=== PATIENT | male | born 1985 | race Caucasian/White ===

== ENCOUNTER 2019-07-13 13:16 | Emergency (ER) | payer BC ==
[~2019-07-13] VITALS: Ht 188 cm; Wt 116.0 kg
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
[2019-07-13] MEDS ORDERED: HYDROcodone/APAP 7.5/325MG 1 TAB TABLET PO ONE (14:30)
[2019-07-13] MEDS ORDERED: HYDR-3165 PO (14:35)
[2019-07-13 14:50] VITALS: BP 167/103
== END 2019-07-13 15:05 | disposition home or self-care (01) ==
LOC: ER 13:16
DX: S82.831A Other fracture of upper and lower end of right fibula, initial encounter for closed fracture (principal); S83.91XA Sprain of unspecified site of right knee, initial encounter; S05.12XA Contusion of eyeball and orbital tissues, left eye, initial encounter; V29.9XXA Motorcycle rider (driver) (passenger) injured in unspecified traffic accident, initial encounter; Y93.I9 Activity, other involving external motion; Y92.828 Other wilderness area as the place of occurrence of the external cause; Y99.8 Other external cause status; Z88.0 Allergy status to penicillin
CPT/HCPCS: 29515; 73562; 73610; 99284-25

== ENCOUNTER → 2019-07-27 | Outpatient (CLI) | payer BC ==
[2019-07-13 14:50] VITALS: BP 167/103
[~2019-07-27] MED LIST: HYDR-3165 PO
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
== END | disposition home or self-care (01) ==
LOC: DXRAD 09:41
PROVIDERS: ATTEND Family Medicine
DX: S82.831A Other fracture of upper and lower end of right fibula, initial encounter for closed fracture (principal); M25.774 Osteophyte, right foot; X58.XXXA Exposure to other specified factors, initial encounter; Y93.89 Activity, other specified; Y92.89 Other specified places as the place of occurrence of the external cause; Y99.8 Other external cause status
CPT/HCPCS: 73600

== ENCOUNTER → 2019-08-24 | Outpatient (CLI) | payer BC ==
--- NOTE | 2019-08-24 15:09 | RAD ---
Right ankle 3 views. HISTORY: Right ankle pain, follow-up fracture 3 views were taken of the right ankle. There is a fracture of the lateral malleolus without change in the alignment or position. There is early callus formation. There is spurring at the tip of the medial malleolus. IMPRESSION: 1. Healing fracture of the lateral malleolus with early callus formation. Electronically signed by: Karl Del Angel MD (08/24/2019 3:06 PM) [facility]
== END ==
LOC: DXRAD 13:45
PROVIDERS: ATTEND Physician Assistant
DX: S82.61XD Displaced fracture of lateral malleolus of right fibula, subsequent encounter for closed fracture with routine healing (principal); M25.771 Osteophyte, right ankle; X58.XXXD Exposure to other specified factors, subsequent encounter
CPT/HCPCS: 73610

== ENCOUNTER → 2019-09-13 | Outpatient (CLI) | payer BC ==
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
== END ==
LOC: RAD 14:30
PROVIDERS: ATTEND Physician Assistant
DX: S82.64XD Nondisplaced fracture of lateral malleolus of right fibula, subsequent encounter for closed fracture with routine healing (principal); W19.XXXD Unspecified fall, subsequent encounter
CPT/HCPCS: 73610

== ENCOUNTER → 2019-10-19 | Outpatient (CLI) | payer BC ==
--- NOTE | 2019-10-19 11:22 | RAD ---
3 views of the right ankle with comparison of 09/13/2019 as well as multiple other prior comparisons. INDICATION: Lateral malleolar fracture. FINDINGS: There is increasing evidence of bony callus formation and healing. Calcification in the interosseous membrane is reidentified. Stable degenerative change of the ankle. Good anatomic alignment of the fracture fragments. Electronically signed by: Rojelio Alonzo MD (10/19/2019 11:19 AM) [id number]
== END | disposition home or self-care (01) ==
LOC: RAD 08:10
PROVIDERS: ATTEND Physician Assistant
DX: S82.64XD Nondisplaced fracture of lateral malleolus of right fibula, subsequent encounter for closed fracture with routine healing (principal); M19.071 Primary osteoarthritis, right ankle and foot; X58.XXXD Exposure to other specified factors, subsequent encounter
CPT/HCPCS: 73610

== ENCOUNTER 2020-12-04 12:04 | Emergency (ER) | payer BC ==
[~2020-12-04] VITALS: Ht 188 cm; Wt 119.0 kg
[2020-12-04 12:20] VITALS: BP 134/88
--- NOTE | 2020-12-04 12:53 | PHYS DOC ---
Past History Past Medical History: No Pertinent History Past Surgical History: No Surgical History Additional Smoking Information: 2- PPD Alcohol Use: None Adult General Chief Complaint Chief Complaint: GENERALIZED BODY ACHES HPI HPI Patient is a 35-year-old male presenting for Covid positive state. Reports being symptomatic yesterday, developed URI symptoms and loss of taste and smell. He took a rapid Covid test at home this morning which was positive. He is here for confirmatory PCR testing for his work. He is otherwise been afebrile with no other concerning complaints. He has been taking Tylenol which is improved his symptoms. No other known diagnosed medical issues or medications taken on a daily basis. He is unvaccinated against COVID-19 Review of Systems Review of Systems Fourteen body systems of review of systems have been reviewed. See HPI for pertinent positives and negative responses, other flores all other systems are negative, non-pertinent or non-contributory Allergies Allergies Allergies Coded Allergies Type Severity Reaction Last Updated Verified Penicillins Allergy Unknown 07/13/19 Yes Physical Exam Physical Exam General: Appears well, non toxic, and comfortable Skin: Warm, dry. Normal for ethnicity. HEENT: Atraumatic. PERRLA. Rhinorrhea and congestion. Nasal turbinates boggy b/l. Moist mucous membranes. Uvula midline. Maintaining secretions. No phonation changes. Neck: Trachea midline. Normal ROM. No stridor. Respiratory: Normal WOB. CTAB w/o w/r/r. No tachypnea. Cardiovascular: Regular rate and rhythm. Normal peripheral perfusion. Abdomen: Soft. Non tender. No distension. Back: Normal ROM. Musculoskeletal: No swelling or deformity. Neuro: Alert and oriented x 4. MAEE. Lymph: No cervical LAD. Psych: Normal affect and mood. Current Patient Data Vital Signs Vital Signs Date Time Temp Pulse Resp B/P (MAP) Pulse Ox O2 Delivery O2 Flow Rate FiO2 12/04/20 12:20 100.1 90 21 134/88 (103) 96 Room Air EKG EKG [] Radiology/Procedures Radiology/Procedures [] Heart Score C/O Chest Pain: No Risk Factors: Risk Factors: DM, Current or recent (<one month) smoker, HTN, HLP, family history of CAD, obesity. Risk Scores: Risk Factors: DM, Current or recent (<one month) smoker, HTN, HLP, family history of CAD, obesity. Course & Med Decision Making Course & Med Decision Making ABCs unremarkable HPI physical exam and comprehensive ER work-up nonconcerning for any emergent or surgical issues PCR Covid test obtained and pending Patient educated on home quarantine and need for continued supportive care in outpatient setting. Strict return precautions discussed with good understanding by patient, all questions and concerns addressed prior to ER departure Navdeep Disclaimer Navdeep Disclaimer This electronic medical record was generated, in whole or in part, using a voice recognition dictation system. Departure Departure: Impression: Primary Impression: COVID-19 Disposition: HOME / SELF CARE / HOMELESS Condition: STABLE Referrals: PCP,NO (PCP) Additional Instructions: You were seen for headache, fever, body aches, and possible infection with COVID-19. Your physical exam was reassuring. We tested you for COVID-19 using the accurate PCR test but this test does not come back for 1 to 2 days. In the meantime you need to quarantine yourself at home away from all other individuals, especially those who are elderly or have any other chronic health issues or an immunocompromised status. You should return to the ED if you develop worsening cough, shortness of breath, chest pain, or any other new or concerning symptoms. Alternate Tylenol and ibuprofen as needed for body aches and pain. You need to quarantine yourself for 10 days until symptom-free. You should make sure to drink plenty of fluids and get plenty of rest. URIAH SCHRADER DO Dec 04, 2020 12:53
== END 2020-12-04 13:00 | disposition home or self-care (01) ==
LOC: ER 12:04
DX: U07.1 COVID-19 (principal); F17.200 Nicotine dependence, unspecified, uncomplicated; Z88.0 Allergy status to penicillin
CPT/HCPCS: 99283; C9803; U0003